=== PATIENT | male | born 1985 | race Caucasian/White ===

== ENCOUNTER 2016-07-26 11:19 | Emergency (ER) | payer BC ==
[~2016-07-26] VITALS: Ht 172.7 cm; Wt 83.9 kg
[~2016-07-26 11:19] MED LIST: CLEOCIN150 MG PO; CLINDAMYCIN HC300 MG PO; FLEXERIL10 MG PO; HYDROCODONE BIT1 T11 PO; MOTRIN800 MG PO; Motrin,Rufen800 MG PO; PREDNICOT20 MG PO; TRAMADOL HCL50 MG PO; ULTRAM50 MG PO; VOLTAREN50 M1 PO
[2016-07-26 11:49] LABS: BASO # 0.1 10*3/uL (0.0-0.1); BASO % 0.7 % (0.0-1.0); EOS # 0.2 10*3/uL (0.0-0.4); EOS % 1.7 % (1.0-4.0); HEMATOCRIT 45.5 % (42.0-52.0); HEMOGLOBIN 15.3 g/dl (14.0-18.0); IG # 0.1 10*3/uL (0.0-0.1); LYMPH # 3.5 10*3/uL (1.3-4.4); LYMPH % 26.7 % (27.0-41.0); MEAN CELL VOLUME 87.5 fl (80.0-94.0); MEAN CORPUSCULAR HGB 29.4 pg (27.0-31.0); MEAN CORPUSCULAR HGB CONC 33.6 g/dl (33.0-37.0); MONO # 1.1 10*3/uL (0.1-1.0); MONO % 8.7 % (3.0-9.0); NEUT # 8.1 10*3/uL (2.3-7.9); NEUT % 61.7 % (47.0-73.0); PLATELET COUNT AUTOMATED 326 10*3/uL (130-400); RED CELL DISTRI WIDTH 12.6 % (0-14.5); WHITE BLOOD COUNT 13.1 10*3/uL (4.8-10.8)
[2016-07-26 12:07] LABS: ALBUMIN 3.8 gm/dl (3.1-4.5); ALKALINE PHOSPHATASE 99 U/L (45-117); BILIRUBIN, TOTAL 0.7 mg/dl (0.2-1.0); BUN 9 mg/dl (7-24); CARBON DIOXIDE 27 mmol/L (21-32); CHLORIDE 105 mmol/L (98-107); EST GLOM FILT AFRICAN AMERICAN > 60 ml/min; GLUCOSE 87 mg/dL (65-99); SGOT/AST 14 IU/L (3-35); SGPT/ALT 36 U/L (12-78); SODIUM 142 mmol/L (136-145); TOTAL PROTEIN 7.8 gm/dL (6.4-8.2)
[2016-07-26] MEDS ORDERED: PREDNISONE10 MG PO (13:02)
[2016-07-26] MEDS ORDERED: CYCLOBENZAPRINE10 MG PO (13:02)
== END 2016-07-26 12:17 | disposition home or self-care (01) ==
LOC: ED 11:19
PROVIDERS: Registered Nurse
DX: M94.0 Chondrocostal junction syndrome [Tietze] (principal); F17.200 Nicotine dependence, unspecified, uncomplicated; Z88.1 Allergy status to other antibiotic agents; Z88.0 Allergy status to penicillin

== ENCOUNTER 2016-10-18 17:19 | Emergency (ER) | payer BC ==
[~2016-10-18 17:19] MED LIST changes: +CYCLOBENZAPRINE10 MG PO; +PREDNISONE10 MG PO
[2016-10-18 17:47] LABS: BASO # 0.1 10*3/uL (0.0-0.1); BASO % 0.7 % (0.0-1.0); EOS # 0.1 10*3/uL (0.0-0.4); EOS % 0.9 % (1.0-4.0); HEMATOCRIT 43.6 % (42.0-52.0); HEMOGLOBIN 14.8 g/dl (14.0-18.0); LYMPH # 2.4 10*3/uL (1.3-4.4); LYMPH % 28.1 % (27.0-41.0); MEAN CELL VOLUME 88.3 fl (80.0-94.0); MEAN CORPUSCULAR HGB CONC 33.9 g/dl (33.0-37.0); MEAN PLATELET VOLUME 10.3 fl (9.6-12.3); MONO # 0.6 10*3/uL (0.1-1.0); MONO % 6.6 % (3.0-9.0); NEUT # 5.5 10*3/uL (2.3-7.9); NEUT % 63.5 % (47.0-73.0); PLATELET COUNT AUTOMATED 260 10*3/uL (130-400); RED BLOOD COUNT 4.94 10*6/uL (4.50-5.90); RED CELL DISTRI WIDTH 12.7 % (0-14.5); WHITE BLOOD COUNT 8.7 10*3/uL (4.8-10.8)
[2016-10-18 18:06] LABS: ALBUMIN 3.6 gm/dl (3.1-4.5); ALKALINE PHOSPHATASE 93 U/L (45-117); BILIRUBIN, TOTAL 0.4 mg/dl (0.2-1.0); BUN 9 mg/dl (7-24); CARBON DIOXIDE 29 mmol/L (21-32); CHLORIDE 106 mmol/L (98-107); EST GLOM FILT AFRICAN AMERICAN > 60 ml/min; GLUCOSE 100 mg/dL (65-99); POTASSIUM 4.1 mmol/L (3.5-5.1); SGOT/AST 17 IU/L (3-35); SGPT/ALT 30 U/L (12-78); SODIUM 140 mmol/L (136-145); TOTAL PROTEIN 7.1 gm/dL (6.4-8.2)
[2016-10-18] MEDS ORDERED: SUNMARK OMEPRAZ20 MG PO (18:20)
[2016-10-18] MEDS ORDERED: CARAFATE1 G1 PO (18:20)
[2016-10-18] MEDS ORDERED: ZOFRAN4 MG PO (18:20)
== END 2016-10-18 18:33 | disposition home or self-care (01) ==
LOC: ED 17:19
PROVIDERS: Nurse Practitioner Family
DX: B34.9 Viral infection, unspecified (principal); R03.0 Elevated blood-pressure reading, without diagnosis of hypertension; F17.200 Nicotine dependence, unspecified, uncomplicated; Z88.0 Allergy status to penicillin; Z88.1 Allergy status to other antibiotic agents; Z88.2 Allergy status to sulfonamides

== ENCOUNTER → 2017-02-25 | Outpatient (CLI) | payer BC ==
[~2017-02-25] MED LIST changes: +CARAFATE1 G1 PO; +SUNMARK OMEPRAZ20 MG PO; +ZOFRAN4 MG PO
== END | disposition home or self-care (01) ==
LOC: RAD 16:39
DX: M75.42 Impingement syndrome of left shoulder (principal)

== ENCOUNTER 2017-12-07 12:13 | Emergency (ER) | payer OTHER ==
[~2017-12-07] VITALS: Ht 172.7 cm; Wt 95.3 kg
== END 2017-12-07 14:01 | disposition home or self-care (01) ==
LOC: ED 12:13
DX: M54.5 Low back pain (principal); F17.200 Nicotine dependence, unspecified, uncomplicated; Z88.0 Allergy status to penicillin; Z88.1 Allergy status to other antibiotic agents; Z88.2 Allergy status to sulfonamides; Z88.8 Allergy status to other drugs, medicaments and biological substances

== ENCOUNTER 2017-12-09 15:13 | Emergency (ER) | payer OTHER ==
[~2017-12-09] VITALS: Ht 172.7 cm; Wt 95.3 kg
[2017-12-09] MEDS ORDERED: BENADRYL25 M2 PO (15:28)
[2017-12-09] MEDS ORDERED: PREDNISONE20 M1 PO (15:28)
[2017-12-09] MEDS ORDERED: ELIMITE 5%60 GM T (15:28)
== END 2017-12-09 15:32 | disposition home or self-care (01) ==
LOC: ED 15:13
DX: B86 Scabies (principal); F17.200 Nicotine dependence, unspecified, uncomplicated; Z88.0 Allergy status to penicillin; Z88.1 Allergy status to other antibiotic agents; Z88.2 Allergy status to sulfonamides

== ENCOUNTER 2017-12-17 23:41 | Emergency (ER) | payer OTHER ==
[~2017-12-17] VITALS: Ht 170.1 cm; Wt 97.5 kg
[~2017-12-17 23:41] MED LIST changes: +BENADRYL25 M2 PO; +ELIMITE 5%60 GM T; +PREDNISONE20 M1 PO
[2017-12-18] MEDS ORDERED: PREDNISONE10 MG PO (00:15)
[2017-12-18] MEDS ORDERED: HYDROXYZINE HCL25 MG PO (00:15)
== END 2017-12-18 00:16 | disposition home or self-care (01) ==
LOC: ED 23:41
DX: R21 Rash and other nonspecific skin eruption (principal); F17.200 Nicotine dependence, unspecified, uncomplicated; Z88.0 Allergy status to penicillin; Z88.1 Allergy status to other antibiotic agents

== ENCOUNTER 2017-12-18 03:34 | Emergency (ER) | payer OTHER ==
[~2017-12-18] VITALS: Ht 172.7 cm; Wt 97.5 kg
[~2017-12-18 03:34] MED LIST changes: +HYDROXYZINE HCL25 MG PO
== END 2017-12-18 04:15 | disposition home or self-care (01) ==
LOC: ED 03:34
DX: L50.9 Urticaria, unspecified (principal); Z88.0 Allergy status to penicillin; Z88.1 Allergy status to other antibiotic agents; Z88.8 Allergy status to other drugs, medicaments and biological substances

== ENCOUNTER 2019-08-13 21:48 | Emergency (ER) | payer OTHER ==
[~2019-08-13] VITALS: Ht 172.7 cm; Wt 96.2 kg
[2019-08-13] MEDS ORDERED: TAMIFLU 75MG CA75 MG PO (23:18)
== END 2019-08-13 23:48 | disposition home or self-care (01) ==
LOC: ED 21:48
DX: J10.1 Influenza due to other identified influenza virus with other respiratory manifestations (principal); Z88.0 Allergy status to penicillin; Z88.1 Allergy status to other antibiotic agents; Z88.8 Allergy status to other drugs, medicaments and biological substances; Z79.899 Other long term (current) drug therapy

== ENCOUNTER 2021-10-06 17:20 | Emergency (ER) | payer OTHER ==
[~2021-10-06] VITALS: Ht 172.7 cm; Wt 99.8 kg
[~2021-10-06 17:20] MED LIST changes: +TAMIFLU 75MG CA75 MG PO
[2021-10-06 18:00] LABS: BASO # 0.1 10*3/uL (0.0-0.1); BASO % 0.9 % (0.0-1.0); EOS # 0.1 10*3/uL (0.0-0.4); EOS % 1.3 % (1.0-4.0); HEMATOCRIT 48.1 % (42.0-52.0); LYMPH # 3.4 10*3/uL (1.3-4.4); LYMPH % 34.4 % (27.0-41.0); MEAN CELL VOLUME 87.5 fl (80.0-94.0); MEAN CORPUSCULAR HGB 29.8 pg (27.0-31.0); MEAN CORPUSCULAR HGB CONC 34.1 g/dl (33.0-37.0); MEAN PLATELET VOLUME 10.4 fl (9.6-12.3); MONO # 0.9 10*3/uL (0.1-1.0); MONO % 8.7 % (3.0-9.0); NEUT # 5.4 10*3/uL (2.3-7.9); NEUT % 54.4 % (47.0-73.0); PLATELET COUNT AUTOMATED 312 10*3/uL (130-400); RED CELL DISTRI WIDTH 12.4 % (0-14.5)
[2021-10-06 18:16] LABS: ALKALINE PHOSPHATASE 96 U/L (45-117); BUN 8 mg/dl (7-24); CHLORIDE 107 mmol/L (98-107); CREATININE 0.85 mg/dL (0.70-1.30); POTASSIUM 4.1 mmol/L (3.5-5.1); SGOT/AST 15 IU/L (3-35); SGPT/ALT 34 U/L (12-78); SODIUM 137 mmol/L (136-145); TOTAL PROTEIN 7.8 gm/dL (6.4-8.2)
[2021-10-06] MEDS ORDERED: Motrin,Rufen800 MG PO (18:35)
== END 2021-10-06 18:44 | disposition home or self-care (01) ==
LOC: ED 17:20
PROVIDERS: Nurse Practitioner Family
DX: R22.0 Localized swelling, mass and lump, head (principal); Z88.0 Allergy status to penicillin; Z88.1 Allergy status to other antibiotic agents

== ENCOUNTER 2022-07-31 15:13 | Emergency (ER) | payer OTHER ==
[~2022-07-31] VITALS: Ht 172.7 cm; Wt 102.1 kg
== END 2022-07-31 17:44 | disposition home or self-care (01) ==
LOC: ED 15:13
DX: S05.01XA Injury of conjunctiva and corneal abrasion without foreign body, right eye, initial encounter (principal); Z88.0 Allergy status to penicillin; Z88.1 Allergy status to other antibiotic agents; W22.8XXA Striking against or struck by other objects, initial encounter; Y93.89 Activity, other specified; Y92.89 Other specified places as the place of occurrence of the external cause; Y99.8 Other external cause status

== ENCOUNTER 2023-09-06 15:37 | Emergency (ER) | payer OTHER ==
[~2023-09-06] VITALS: Ht 172.7 cm; Wt 102.1 kg
[2023-09-06] MEDS ORDERED: SODIUM CHLORIDE 0.9% 1,000 ML IV ONE (15:55)
[2023-09-06] MEDS ORDERED: Pantoprazole Sodium 40 MG VIAL IV ONE (15:55)
[2023-09-06] MEDS ORDERED: FAMOTIDINE 50 ML IV ONE (15:55)
[2023-09-06] MEDS ORDERED: Ketorolac Tromethamine 15 MG/ML VIAL IV ONE (15:55)
[2023-09-06 16:06] LABS: BASO # 0.1 10*3/uL (0.0-0.1); EOS # 0.1 10*3/uL (0.0-0.4); HEMATOCRIT 46.3 % (42.0-52.0); LYMPH # 2.7 10*3/uL (1.3-4.4); LYMPH % 29.6 % (27.0-41.0); MEAN CELL VOLUME 86.7 fl (80.0-94.0); MEAN CORPUSCULAR HGB 29.2 pg (27.0-31.0); MEAN CORPUSCULAR HGB CONC 33.7 g/dl (33.0-37.0); MEAN PLATELET VOLUME 10.1 fl (9.6-12.3); MONO # 0.7 10*3/uL (0.1-1.0); MONO % 7.4 % (3.0-9.0); NEUT # 5.5 10*3/uL (2.3-7.9); NEUT % 60.7 % (47.0-73.0); PLATELET COUNT AUTOMATED 320 10*3/uL (130-400); RED BLOOD COUNT 5.34 10*6/uL (4.50-5.90); RED CELL DISTRI WIDTH 12.5 % (0-14.5)
[2023-09-06] MEDS ORDERED: Pantoprazole Sodium 20 MG TAB PO ONE (16:20)
[2023-09-06] MEDS ORDERED: FAMOTIDINE 20 MG TAB PO ONE (16:20)
[2023-09-06] MEDS ORDERED: IBUPROFEN 800 MG TAB PO ONE (16:20)
[2023-09-06 16:27] LABS: ALKALINE PHOSPHATASE 93 U/L (46-116); BUN 6 mg/dl (9-23); CHLORIDE 108 mmol/L (98-107); POTASSIUM 3.6 mmol/L (3.4-5.1); SGPT/ALT 19 U/L (5-49); TOTAL PROTEIN 7.6 gm/dL (6.0-8.0)
[2023-09-06] MEDS ORDERED: PEPCID20 MG PO (16:31)
[2023-09-06] MEDS ORDERED: MELOXICAM15 MG PO (16:31)
== END 2023-09-06 16:35 | disposition home or self-care (01) ==
LOC: ED 15:37
PROVIDERS: Emergency Medicine
DX: R07.89 Other chest pain (principal); K21.9 Gastro-esophageal reflux disease without esophagitis; Z88.0 Allergy status to penicillin; Z88.1 Allergy status to other antibiotic agents; Z88.8 Allergy status to other drugs, medicaments and biological substances

== ENCOUNTER 2025-03-10 23:30 | Emergency (ER) | payer BC ==
[~2025-03-10] VITALS: Ht 172.7 cm; Wt 105.2 kg
[~2025-03-10 23:30] MED LIST changes: +MELOXICAM15 MG PO; +PEPCID20 MG PO
[2025-03-11] MEDS ORDERED: Tetracaine Hydrochloride 0.5% 4 ML BOT OPH ONE (00:30)
[2025-03-11] MEDS ORDERED: TOBRAMYCIN 2.5 ML BOT OPH ONE (01:25)
== END 2025-03-11 01:30 | disposition home or self-care (01) ==
LOC: ED 23:30
DX: S05.02XA Injury of conjunctiva and corneal abrasion without foreign body, left eye, initial encounter (principal); Z88.0 Allergy status to penicillin; Z88.1 Allergy status to other antibiotic agents; Z79.899 Other long term (current) drug therapy; X50.9XXA Other and unspecified overexertion or strenuous movements or postures, initial encounter; Y93.89 Activity, other specified; Y92.89 Other specified places as the place of occurrence of the external cause; Y99.8 Other external cause status

== ENCOUNTER 2025-06-13 14:40 | Emergency (ER) | payer BC ==
[~2025-06-13] VITALS: Wt 105.2 kg
[2025-06-13] MEDS ORDERED: MG-AL HYDROXIDE/SIMETICONE 30 ML UDC PO ONE (17:00)
[2025-06-13 17:32] LABS: BASO # 0.1 10*3/uL (0.0-0.1); BASO % 0.6 % (0.0-1.0); EOS # 0.1 10*3/uL (0.0-0.4); EOS % 1.2 % (1.0-4.0); MEAN CELL VOLUME 87.2 fl (80.0-94.0); MEAN CORPUSCULAR HGB 29.6 pg (27.0-31.0); MEAN PLATELET VOLUME 10.3 fl (9.6-12.3); MONO # 0.8 10*3/uL (0.1-1.0); MONO % 6.7 % (3.0-9.0); NEUT # 7.9 10*3/uL (2.3-7.9); NEUT % 66.0 % (47.0-73.0); NUCLEATED RED BLOOD CELL 0.0 % (0.0-0.0); NUCLEATED RED BLOOD CELL 0.0 10*3/uL (0.0-0.0); PLATELET COUNT AUTOMATED 312 10*3/uL (130-400); RED CELL DISTRI WIDTH 12.7 % (0-14.5)
[2025-06-13 17:56] LABS: BUN 6 mg/dl (9-23); SGPT/ALT 19 U/L (5-49)
[2025-06-13] MEDS ORDERED: OMEPRAZOLE40 MG PO (18:41)
[2025-06-13] MEDS ORDERED: Carafate1 GM PO (18:41)
== END 2025-06-13 19:09 | disposition home or self-care (01) ==
LOC: ED 14:40
PROVIDERS: Emergency Medicine
DX: K21.9 Gastro-esophageal reflux disease without esophagitis (principal); Z88.0 Allergy status to penicillin; Z88.1 Allergy status to other antibiotic agents; Z88.8 Allergy status to other drugs, medicaments and biological substances